=== PATIENT | female | born 1995 | race Caucasian/White ===

== ENCOUNTER 2017-04-11 12:18 | Emergency (ER) | payer OTHER ==
[~2017-04-11] VITALS: Ht 175.3 cm; Wt 77.3 kg
[2017-04-11 12:38] VITALS: BP 127/64
--- NOTE | 2017-04-11 13:12 | NUR ---
Patient ambulated to bed 7. RN evaluating patient at bedside.
--- NOTE | 2017-04-11 13:32 | NUR ---
PATIENT PRESENTS TO ED WITH c/o lower abdominal cramping type pain with bright red blood upon wiping x 2 wk admits has IUD placed 2015 hx--denies rx---none DENIES N/V/D; SKIN IS PINK/WARM/DRY; AAOX4 WITH EVEN AND STEADY GAIT; LUNGS CLEAR BL; HR EVEN AND REGULAR; PT DENIES ANY FEVER, CP, SOB, OR COUGH AT THIS TIME; PATIENT POSITIONED FOR COMFORT; HOB ELEVATED; BEDRAILS UP X2; BED DOWN. ER MD MADE AWARE OF PT STATUS.
[2017-04-11] MEDS ORDERED: KETOROLAC 60 MG/2 ML VIAL IM ONE (13:45)
--- NOTE | 2017-04-11 14:04 | NUR ---
WATER GIVEN AND INSTRUCTED TO DRINK WATER FOR US AND PT AGREED WITH IT.
--- NOTE | 2017-04-11 14:18 | NUR ---
Pt drinking water and aware need to have full bladder.
--- NOTE | 2017-04-11 14:31 | NUR ---
us ongoing at this time
[2017-04-11 15:41] VITALS: BP 120/74
--- NOTE | 2017-04-11 15:41 | NUR ---
Patient discharged with v/s stable. Written and verbal after care instructions given and explained. Patient alert, oriented and verbalized understanding of instructions. Ambulatory with steady gait. All questions addressed prior to discharge. ID band removed. Patient advised to follow up with PMD. Rx of MOTRIN AND NORCO given. Patient educated on indication of medication including possible reaction and side effects. Opportunity to ask questions provided and answered. ENCOURAGED FLUID INTAKE AND PT AGREED WITH IT.
== END 2017-04-11 15:41 | disposition home or self-care (01) ==
LOC: MED 12:18
DX: R10.30 Lower abdominal pain, unspecified (principal); F17.200 Nicotine dependence, unspecified, uncomplicated
CPT/HCPCS: 76856; 81002; 81025; 96372; 99284; J1885; Q0092

== ENCOUNTER 2017-10-05 14:04 | Emergency (ER) | payer OTHER ==
[~2017-10-05] VITALS: Ht 172.7 cm; Wt 76.0 kg
[2017-10-05 14:56] VITALS: BP 112/67
--- NOTE | 2017-10-05 15:52 | NUR ---
PT AMBULATES TO BED 1
--- NOTE | 2017-10-05 15:54 | NUR ---
REPORT GIVEN TO MONICA CHOW
--- NOTE | 2017-10-05 15:56 | NUR ---
21 YO F C/O URINARY FREQUENCY X 1 WK WITH BLOOD IN THE URINE TODAY, PAINFUL URINATION PT HAS NO OTHER C/O AT THIS TIME. HX; DENIES RX; DENIES
[2017-10-05 16:25] VITALS: BP 110/64
--- NOTE | 2017-10-05 16:25 | NUR ---
Patient discharged with v/s stable. Written and verbal after care instructions given and explained. Patient alert, oriented and verbalized understanding of instructions. Ambulatory with steady gait. All questions addressed prior to discharge. ID band removed. Patient advised to follow up with PMD. Rx of NITROFURANTOIN AND PYRIDIUM given. Patient educated on indication of medication including possible reaction and side effects. Opportunity to ask questions provided and answered.
== END 2017-10-05 16:25 | disposition home or self-care (01) ==
LOC: MED 14:04
DX: N39.0 Urinary tract infection, site not specified (principal)
CPT/HCPCS: 81002; 81025; 87086; 87186; 99284

== ENCOUNTER 2017-12-31 22:01 | Emergency (ER) | payer OTHER ==
[~2017-12-31] VITALS: Ht 172.7 cm; Wt 72.6 kg
[2017-12-31 22:08] VITALS: BP 131/81
--- NOTE | 2017-12-31 23:48 | NUR ---
PT TO ER BED 1
--- NOTE | 2017-12-31 23:58 | NUR ---
PT PRESESNTS TO ED WITH C/O LOWER ABDOMINAL PAIN X 2 DAYS. PT ALSO STATES BLOOD IN URINE. PT AAO X4, GCS 15, RESPIRATIONS EVEN AND UNLABORED, BL LUNG CLEAR. SKIN WARM/PINK/DRY, CAP REFILLS LESS THAN 3 SECS. PULSES STRONG. VSS, ER MD MADE AWARE OF PT STATUS. WILL CONTINUE TO MONITOR.
[2018-01-01] MEDS ORDERED: PHENAZOPYRIDINE 100 MG TAB PO ONE (00:55)
[2018-01-01 01:03] VITALS: BP 125/58
--- NOTE | 2018-01-01 01:04 | NUR ---
Patient discharged with v/s stable. Written and verbal after care instructions given and explained. Patient alert, oriented and verbalized understanding of instructions. Ambulatory with steady gait. All questions addressed prior to discharge. ID band removed. Patient advised to follow up with PMD. Rx of PYRIDIUM AND KEFLEX given. Patient educated on indication of medication including possible reaction and side effects. Opportunity to ask questions provided and answered.
== END 2018-01-01 01:04 | disposition home or self-care (01) ==
LOC: MED 22:01
DX: N39.0 Urinary tract infection, site not specified (principal)
CPT/HCPCS: 81002; 81025; 99283

== ENCOUNTER 2018-10-20 11:07 | Emergency (ER) | payer OTHER ==
[~2018-10-20] VITALS: Ht 172.7 cm; Wt 71.7 kg
[2018-10-20 11:13] VITALS: BP 130/80
--- NOTE | 2018-10-20 11:18 | NUR ---
PT AMBULATED TO ER BED 01
--- NOTE | 2018-10-20 11:30 | NUR ---
PT C/O IUD REMOVED 08/29, FEELS FB INSIDE WHEN DOING SELF CHECK AND HAS PAINFUL SEXUAL INTERCOURSE SINCE REMOVAL OF IUD. PT STATES HAD TINY BLEEDING FOR ONE WEEK AND THICKER VAGINAL DISCHARGE SINCE ICU REMOVAL. DENIES N/V/D; SKIN IS PINK/WARM/DRY; AAOX4 WITH EVEN AND STEADY GAIT; LUNGS CLEAR BL; HR EVEN AND REGULAR; PT DENIES ANY FEVER, CP, SOB, OR COUGH AT THIS TIME; PATIENT STATES PAIN OF 6/10 AT THIS TIME; VSS; PATIENT POSITIONED FOR COMFORT; HOB ELEVATED; BEDRAILS UP X1; BED DOWN. ER MD MADE AWARE OF PT STATUS.
[2018-10-20 11:57] LABS: APPEARANCE,URINE CLEAR (CLEAR); BILIRUBIN,URINE NEGATIVE (NEGATIVE); BLOOD, URINE NEGATIVE (NEGATIVE); COLOR,URINE YELLOW (YELLOW); LEUKOCYTE ESTERASE ,URINE NEGATIVE (NEGATIVE); NITRITE, URINE NEGATIVE (NEGATIVE); PH,URINE 6.5 (5.0-9.0); UGLUCOSE NEGATIVE (NEGATIVE)
--- NOTE | 2018-10-20 13:13 | NUR ---
Female Diver Helper EMT [place] accompanied ER MD DR Alvarado for female patient Pelvic Exam.
[2018-10-20] MEDS ORDERED: AZITHROMYCIN 250 MG TAB PO ONE (13:15)
[2018-10-20] MEDS ORDERED: cefTRIAXone 250 MG in LIDOCAINE MPF 1% - 5 mL VIAL 0.9 ML IM ONE (13:15)
[2018-10-20 13:36] VITALS: BP 107/55
--- NOTE | 2018-10-20 13:38 | NUR ---
Patient will be discharged at 1345 and is with v/s stable. Written and verbal after care instructions given and explained to pt. Patient alert, oriented and verbalized understanding of instructions. Ambulatory with steady gait. All questions addressed prior to discharge. ID band removed. Patient advised to follow up with PMD. Rx of Ibuprofen given. Patient educated on indication of medication including possible reaction and side effects. Opportunity to ask questions provided and answered.
[2018-10-22 06:09] LABS: CHLAMYDIA TRACHOMATIS AMP DNA Negative (Negative)
== END 2018-10-20 13:38 | disposition home or self-care (01) ==
LOC: MED 11:07
DX: R10.2 Pelvic and perineal pain (principal)
CPT/HCPCS: 36415; 76856; 81001; 81003; 81025; 87086; 87491; 93976; 96372; 99284; J0696; J2001; Q0092; 81002

== ENCOUNTER 2018-12-02 13:28 | Emergency (ER) | payer OTHER ==
[~2018-12-02] VITALS: Ht 175.3 cm; Wt 69.9 kg
[2018-12-02 14:01] VITALS: BP 119/65
--- NOTE | 2018-12-02 14:05 | NUR ---
PT TO WAIT IN [facility]. VSS. AA0X4. FULL AND CLEAR SPEECH.
--- NOTE | 2018-12-02 14:59 | NUR ---
PT TAKEN TO BED 1.
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
--- NOTE | 2018-12-02 16:35 | NUR ---
DR CROWE AT BEDSIDE
[2018-12-02] MEDS ORDERED: KETOROLAC 60 MG/2 ML VIAL IM ONE (16:40)
--- NOTE | 2018-12-02 17:19 | NUR ---
VSS AT THIS TIME. PAIN 08/11 AFTER MORPHINE IM ADMINISTERED Addendum: 12/02/18 at 1720 by [email or web address] AFTER TORADOL IM
[2018-12-02 17:23] VITALS: BP 128/65
--- NOTE | 2018-12-02 17:24 | NUR ---
Patient discharged with v/s stable. Written and verbal after care instructions given and explained. Patient alert, oriented and verbalized understanding of instructions. Ambulatory with steady gait. All questions addressed prior to discharge. ID band removed. Patient advised to follow up with PMD. Rx of MOTRIN AND NORCO given. Patient educated on indication of medication including possible reaction and side effects, INSTRUCTED TO NOT DRIVE AFTER TAKING NORCO. Opportunity to ask questions provided and answered. PT GIVEN PAPER COPY OF XRAY RESULTS.
== END 2018-12-02 17:24 | disposition home or self-care (01) ==
LOC: MED 13:28
DX: M54.2 Cervicalgia (principal); M54.9 Dorsalgia, unspecified; R11.0 Nausea; F17.200 Nicotine dependence, unspecified, uncomplicated; V89.2XXA Person injured in unspecified motor-vehicle accident, traffic, initial encounter; Y93.89 Activity, other specified; Y92.89 Other specified places as the place of occurrence of the external cause; Y99.8 Other external cause status
CPT/HCPCS: 72040; 72080; 81025; 96372; 99283; J1885

== ENCOUNTER 2021-10-28 09:13 | Emergency (ER) | payer MEDICAID, OTHER ==
[~2021-10-28] VITALS: Ht 172.7 cm; Wt 76.3 kg
[2021-10-28 09:17] VITALS: BP 133/64
[2021-10-28] MEDS ORDERED: DICYCLOMINE HCL LIQUID 20 MG, ALUMINUM HYD/MAG/SIMETHICONE 30 ML, LIDOCAINE VISCOUS 2% ... PO ONE ×3 (09:35)
[2021-10-28] MEDS ORDERED: ONDANSETRON 4 MG/2 ML VIAL IVP ONE (09:35)
[2021-10-28] MEDS ORDERED: BISMUTH SUBSALICYLATE 15 ML UDBTL PO ONE (09:35)
[2021-10-28] MEDS ORDERED: NACL 0.9% 1,000 ML IV ONE ×2 (09:35→11:00)
--- NOTE | 2021-10-28 10:00 | NUR ---
25YO FEMALE PT C/O DIARRHEA ALONG WITH 7/10 TIGHT ABDOMINAL PAIN X5 DAYS. PT STATES BOWELS HAVE BEEN CONSISTENTLY "WATERY" AND CANT TOLERATE FOODS DUE TO DIARRHEA. PT STATES "GREEN/ YELLOW " COLORING XYESTERDAY. REPORTS "CHEMICALLY" ODOR IN STOOL. DENIES N/V OR FEVERS. STATES HER GRAMPA HAS STARTED TO FEEL "GASSY" XYESTERDAY. PT DENIES CHANGE IN DIET. DENIES TAKING MEDICATION FOR PAIN. DENIES CHEST PAIN OR SOB. PT AAOX4, RESPIRATIONS EVEN AND UNLABORED. NKA NHX
[2021-10-28] MEDS ORDERED: ALUMINUM HYD/MAG/SIMETHICONE 30 ML UDC ONE (10:10)
[2021-10-28] MEDS ORDERED: DICYCLOMINE HCL LIQUID 10 MG/5 ML UDC ONE (10:10)
[2021-10-28 10:25] LABS: BASOPHILS % (AUTO) 0.7 % (0.0-2.0); EOSINOPHILS # (AUTO) 0.1 K/uL (0-0.4); EOSINOPHILS % (AUTO) 1.2 % (0.0-4.0); HEMATOCRIT 38.6 % (36-48); HEMOGLOBIN 12.7 g/dL (12.0-16.0); LYMPHOCYTES # (AUTO) 1.2 K/uL (2.5-16.5); LYMPHOCYTES % (AUTO) 18.7 % (20.5-51.1); MEAN CORPUSCULAR HEMOGLOBIN 28 pg (27-31); MEAN CORPUSCULAR HGB CONC 33 g/dL (33-37); MEAN CORPUSCULAR VOLUME 85.3 fL (80-94); MONOCYTES # (AUTO) 0.6 K/uL (0.8-1.0); MONOCYTES % (AUTO) 9.6 % (1.7-9.3); NEUTROPHILS # (AUTO) 4.4 K/uL (1.8-7.7); NEUTROPHILS % (AUTO) 69.8 % (42.2-75.2); PLATELET COUNT (AUTO) 264 K/uL (140-450); RED BLOOD CELL COUNT(AUTO) 4.53 MIL/uL (4.20-5.40); RED CELL DISTRIBUTION WIDTH 13.5 % (11.6-13.7); WHITE BLOOD COUNT (AUTO) 6.3 K/uL (4.8-10.8)
[2021-10-28 10:52] LABS: ALBUMIN 3.9 g/dL (3.4-5.0); ANION GAP 11.6 (8-16); CARBON DIOXIDE 24.4 mmol/L (21-32); CREATININE 0.6 mg/dL (0.6-1.3); TOTAL BILIRUBIN 0.2 mg/dL (0.0-1.0)
--- NOTE | 2021-10-28 10:53 | NUR ---
PT 1ST STOOL CULTURE COLLECTED. WALKED AND HANDED TO SUPERVISOR SUNGLASSES MILLA
--- NOTE | 2021-10-28 11:00 | NUR ---
LAB CALLED TO DISREGARD FIRST CULTURE DUE TO MEETING CDIF SAMPLE PROTOCOL
--- NOTE | 2021-10-28 11:40 | NUR ---
PT AMBULATED TO RESTROOM
--- NOTE | 2021-10-28 11:45 | NUR ---
PT AMBULATED BACK TO ROOM AND REPORTS 2ND BOWEL MOVEMENT
--- NOTE | 2021-10-28 12:06 | NUR ---
PT AMBULATORY TO RESTROOM
--- NOTE | 2021-10-28 12:08 | NUR ---
PT AMBULATORY BACK TO ROOM
--- NOTE | 2021-10-28 12:30 | NUR ---
4TH STOOL COLLECTED.
[2021-10-28 12:36] LABS: BILIRUBIN,URINE NEGATIVE (NEGATIVE); BLOOD, URINE NEGATIVE (NEGATIVE); COLOR,URINE YELLOW (YELLOW); LEUKOCYTE ESTERASE ,URINE NEGATIVE (NEGATIVE); NITRITE, URINE NEGATIVE (NEGATIVE); UGLUCOSE NEGATIVE (NEGATIVE)
[2021-10-28 12:47] LABS: APPEARANCE,URINE CLEAR (CLEAR)
--- NOTE | 2021-10-28 12:48 | NUR ---
STOOL SAMPLE COLLECTED BY LINK TRAINER
[2021-10-28] MEDS ORDERED: LOPE1TAB14 PO (12:57)
[2021-10-28] MEDS ORDERED: LAC PO (12:57)
--- NOTE | 2021-10-28 13:30 | NUR ---
IV removed, catheter intact and site benign. Applied folded 4x4 gauze and tape to stop bleeding.
--- NOTE | 2021-10-28 13:30 | NUR ---
PT MADE AWARE OF PENDING CDIF RESULTS
[2021-10-28 13:31] VITALS: BP 131/70
--- NOTE | 2021-10-28 13:31 | NUR ---
Patient discharged with v/s stable. Written and verbal after care instructions FOR DIARRHEA AND VIRAL GASTRITIS given and explained. Patient alert, oriented and verbalized understanding of instructions. Ambulatory with steady gait. All questions addressed prior to discharge. ID band removed. Patient advised to follow up with PMD. Rx of FLORANEX TAB AND LOPERAMIDE HCL given. Opportunity to ask questions provided and answered.
--- NOTE | 2021-10-28 14:35 | NUR ---
Chart checked and completed. The patient's care was reviewed and supervised by Vikki Harrison RN.
== END 2021-10-28 13:31 | disposition home or self-care (01) ==
LOC: MED 09:13
DX: A08.4 Viral intestinal infection, unspecified (principal); Z79.899 Other long term (current) drug therapy
CPT/HCPCS: 36415; 80053; 81003; 81025; 82150; 82272; 83690; 85025; 87045; 87070; 87427; 89055; 96360; 96361; 99285; J7030